=== PATIENT | female | born 1990 | race Caucasian/White ===

== ENCOUNTER 2018-02-22 10:34 | Emergency (ER) | payer BC ==
[~2018-02-22] VITALS: Ht 152.4 cm; Wt 65.8 kg
[2018-02-22] MEDS ORDERED: DONNATAL E16.2 MG/5 (10:56)
[2018-02-22] MEDS ORDERED: IBUPROFEN 600 MG TAB PO STA (10:58)
[2018-02-22] MEDS ORDERED: CYCLOBENZAPRINE HCL 10 MG TAB PO STA (10:58)
[2018-02-22] MEDS ORDERED: ONDANSETRON HCL 4 MG ORAL DISINTEGRATING TAB PO STA (11:17)
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
[2018-02-22 14:30] VITALS: BP 101/69
== END 2018-02-22 14:35 | disposition home or self-care (01) ==
LOC: ER 10:34
DX: G89.11 Acute pain due to trauma (principal); M54.2 Cervicalgia; S16.1XXA Strain of muscle, fascia and tendon at neck level, initial encounter; S20.219A Contusion of unspecified front wall of thorax, initial encounter; V43.52XA Car driver injured in collision with other type car in traffic accident, initial encounter; Y92.488 Other paved roadways as the place of occurrence of the external cause; K58.9 Irritable bowel syndrome, unspecified; E28.2 Polycystic ovarian syndrome; F17.210 Nicotine dependence, cigarettes, uncomplicated
CPT/HCPCS: 70450; 71046; 72125; 81025; 93005; 99284